=== PATIENT | female | born 1965 | race African-American/Black ===

== ENCOUNTER 2022-06-12 00:30 | Inpatient (IN) | payer MEDICAID, OTHER ==
[~2022-06-12] VITALS: Ht 154.9 cm; Wt 61.9 kg
[2022-06-12] MEDS ORDERED: ASPIRIN 81MG TABLET PO ONE (01:00)
[2022-06-12] MEDS ORDERED: ASPIRIN 81MG TABLET PO NR (03:30)
[2022-06-12 03:32] LABS: BASOPHILS % 1.4 % (0.0-2.0); EOSINOPHILS % 3.5 % (0.0-5.0); HEMATOCRIT. 40.6 % (36.0-48.0); HEMOGLOBIN. 13.6 g/dL (12.0-16.0); MEAN CORPUSCULAR HEMOGLOBIN 30.7 pg (28.0-32.0); MEAN CORPUSCULAR VOLUME 91.7 fL (81.0-99.0); MEAN PLATELET VOLUME 6.3 fl (7.4-10.4); MONOCYTES % 9.5 % (2.0-8.0); NEUTROPHILS % 55.6 % (40.0-76.0); PLATELET 281 x1000/uL (130-400); RED BLOOD CELL COUNT 4.43 mill/uL (4.2-5.4); RED CELL DISTRIBUTION WIDTH 15.5 % (11.6-14.6)
[2022-06-12 03:44] LABS: D-DIMER 4.95 mg/L FEU (<0.50); INR 1.1; PARTIAL THROMBOPLASTIN TIME 28.1 sec (23.4-31.0); PROTHROMBIN TIME 11.5 sec (9.6-11.0)
[2022-06-12 04:00] LABS: CHLORIDE 107 mEq/L (98-107)
[2022-06-12] MEDS ORDERED: ENOXAPARIN 80MG/0.8ML SYR SUBCUT NR (05:00)
[2022-06-12] MEDS ORDERED: NALOXONE HCL 0.4MG/ML VIAL IV PRN ×2 (08:15→16:00)
[2022-06-12] MEDS: HYDROCODONE/ACETAMINOPHEN 10/325MG TABLET PO PRN ×2 (08:33→14:38)
[2022-06-12 10:00] VITALS: BP 157/93
[2022-06-12] MEDS ORDERED: HYDRALAZINE 20MG/ML VIAL IV NR (11:45)
[2022-06-12 12:00] VITALS: BP 188/96
[2022-06-12] MEDS ORDERED: ONDANSETRON HCL 4MG/2ML INJ IV PRN (15:45)
[2022-06-12] MEDS ORDERED: DOCUSATE SODIUM 100MG CAPSULE PO PRN (15:45)
[2022-06-12] MEDS ORDERED: ACETAMINOPHEN 325MG TABLET PO PRN (15:45)
[2022-06-12] MEDS ORDERED: MAGNESIUM/ALUMINUM HYDROXIDE/SIMETHICONE 30ML UDC PO PRN (15:45)
[2022-06-12] MEDS ORDERED: CLONIDINE 0.1MG TABLET PO PRN (15:45)
[2022-06-12 16:00] VITALS: BP 138/98
[2022-06-12] MEDS ORDERED: AZITHROMYCIN 500 MG in DEXT 5% WATER 250 ML IV SCH (17:00)
[2022-06-12] MEDS: CEFTRIAXONE 1,000 MG in DEXTROSE 5% WATER 50 ML IV SCH (17:22)
[2022-06-12] MEDS: AMLODIPINE 5MG TABLET PO SCH (17:22)
[2022-06-12] MEDS: ENOXAPARIN 80MG/0.8ML SYR SUBCUT SCH (17:22)
[2022-06-12] MEDS: PANTOPRAZOLE SODIUM 40 MG/VIAL IV SCH (17:22)
[2022-06-12 19:16] LABS: CLARITY URINE CLEAR (CLEAR); COLOR URINE YELLOW (YELLOW); KETONES URINE NEGATIVE (NEGATIVE); LEUKOCYTE ESTERASE URINE 3+ (NEGATIVE); NITRITE URINE NEGATIVE (NEGATIVE); OCCULT BLOOD URINE NEGATIVE (NEGATIVE); PH URINE 6.5 (4.5-8.0); PROTEIN URINE NEGATIVE (NEGATIVE); SPECIFIC GRAVITY URINE 1.009 (1.005-1.030); UROBILINOGEN URINE 0.2 E.U./dL (0.2-1.0)
[2022-06-12 19:32] LABS: *AMPHETAMINES SCREEN URINE NEGATIVE (NEGATIVE); *BARBITURATES SCREEN URINE NEGATIVE (NEGATIVE); *BENZODIAZEPINES SCREEN URINE NEGATIVE (NEGATIVE); *COCAINE SCREEN URINE PRESUMTIVE POSITIVE (NEGATIVE); CANNABINOID URINE SCREEN PRESUMTIVE POSITIVE (NEGATIVE); METHADONE URINE SCREEN NEGATIVE (NEGATIVE); OPIATES URINE SCREEN PRESUMTIVE POSITIVE (NEGATIVE); PHENCYCLIDINE URINE SCREEN NEGATIVE (NEGATIVE)
[2022-06-12 20:00] VITALS: BP 145/97
[2022-06-13] VITALS: BP 147/97
[2022-06-13] MEDS: HYDROCODONE/ACETAMINOPHEN 10/325MG TABLET PO PRN ×3 (02:04→21:39)
[2022-06-13 04:00] VITALS: BP 102/75
[2022-06-13] MEDS: ENOXAPARIN 80MG/0.8ML SYR SUBCUT SCH (05:35)
[2022-06-13 08:00] VITALS: BP 131/86
[2022-06-13] MEDS: PANTOPRAZOLE SODIUM 40 MG/VIAL IV SCH (08:11)
[2022-06-13] MEDS: AMLODIPINE 5MG TABLET PO SCH (08:11)
[2022-06-13] MEDS ORDERED: IOHEXOL-350 100 ML BOTTLE ONE (09:30)
[2022-06-13 11:48] LABS: BASOPHILS % 1.4 % (0.0-2.0); EOSINOPHILS % 1.1 % (0.0-5.0); HEMATOCRIT. 45.4 % (36.0-48.0); HEMOGLOBIN. 15.7 g/dL (12.0-16.0); LYMPHOCYTES % 24.8 % (20.0-50.0); MEAN CORPUSCULAR HEMOGLOBIN 31.1 pg (28.0-32.0); MEAN CORPUSCULAR VOLUME 90.2 fL (81.0-99.0); MEAN PLATELET VOLUME 6.5 fl (7.4-10.4); MONOCYTES % 9.7 % (2.0-8.0); PLATELET 316 x1000/uL (130-400); RED BLOOD CELL COUNT 5.04 mill/uL (4.2-5.4); RED CELL DISTRIBUTION WIDTH 14.8 % (11.6-14.6)
[2022-06-13 12:00] VITALS: BP 121/89
[2022-06-13 12:05] LABS: CHLORIDE 104 mEq/L (98-107)
[2022-06-13 12:14] LABS: BG BASE EXCESS -0.4 mmol/L (-2.0-2.0); BG CARBOXYHEMOGLOBIN 0.5 % (0.5-1.5); BG DEOXYHEMOGLOBIN 5.1 % (0.0-5.0); BG FRACTION INSPIRED OXYGEN 21; BG HCO3 ACT 21.9 mmol/L (22.0-26.0); BG METHEMOGLOBIN 0.1 % (0.0-1.5); BG OXYGEN SATURATION 94.9 % (92.0-98.5); BG OXYHEMOGLOBIN 94.3 % (94.0-97.0); BG PCO2 30.2 mmHg (35.0-45.0); BG PH 7.478 (7.350-7.450); BG PO2 71.7 mmHg (75.0-100.0); BG SAMPLE SITE RIGHT RADIAL; BG TOTAL HEMOGLOBIN 16.3 g/dL (12.0-18.0); BG VENT MODE ROOM AIR
[2022-06-13 12:24] LABS: HDL CHOLESTEROL 36 mg/dL (40-59); LDL CHOLESTEROL 130 mg/dL (5-100); PHOSPHORUS 3.7 mg/dL (2.5-4.9)
[2022-06-13 16:00] VITALS: BP 111/77
[2022-06-13] MEDS: CEFTRIAXONE 1,000 MG in DEXTROSE 5% WATER 50 ML IV SCH (16:47)
[2022-06-13 20:00] VITALS: BP 104/64
[2022-06-13] MEDS: ENOXAPARIN 60MG/0.6ML SYR SUBCUT SCH (20:25)
[2022-06-14] VITALS: BP 93/59
[2022-06-14] MEDS: HYDROCODONE/ACETAMINOPHEN 10/325MG TABLET PO PRN ×2 (01:40→08:56)
[2022-06-14 04:00] VITALS: BP 98/65
[2022-06-14 08:00] VITALS: BP 131/94
[2022-06-14 08:04] LABS: BASOPHILS % 1.5 % (0.0-2.0); EOSINOPHILS % 2.8 % (0.0-5.0); HEMATOCRIT. 45.1 % (36.0-48.0); HEMOGLOBIN. 15.2 g/dL (12.0-16.0); LYMPHOCYTES % 29.9 % (20.0-50.0); MEAN CORPUSCULAR HEMOGLOBIN 30.6 pg (28.0-32.0); MEAN CORPUSCULAR VOLUME 90.6 fL (81.0-99.0); MEAN PLATELET VOLUME 6.2 fl (7.4-10.4); MONOCYTES % 12.1 % (2.0-8.0); NEUTROPHILS % 53.7 % (40.0-76.0); PLATELET 334 x1000/uL (130-400); RED BLOOD CELL COUNT 4.98 mill/uL (4.2-5.4); RED CELL DISTRIBUTION WIDTH 15.2 % (11.6-14.6)
[2022-06-14 08:25] LABS: CHLORIDE 103 mEq/L (98-107)
[2022-06-14] MEDS: AMLODIPINE 5MG TABLET PO SCH (08:56)
[2022-06-14] MEDS: ENOXAPARIN 60MG/0.6ML SYR SUBCUT SCH (08:57)
[2022-06-14] MEDS ORDERED: FAMOTIDINE 20MG/2ML VIAL IV SCH (09:00)
[2022-06-14] MEDS ORDERED: AZITHROMYCIN 500 MG TABLET PO SCH (09:00)
[2022-06-14 12:00] VITALS: BP 97/69
[2022-06-14] MEDS ORDERED: APIX5TAB MT (12:46)
[2022-06-14] MEDS ORDERED: AMLO5TAB88 PO (12:46)
[2022-06-14 13:15] VITALS: BP 97/69
== END 2022-06-14 15:30 | disposition home or self-care (01) | DRG 816 ==
LOC: ER 00:46 → 8WST 04:48 → ENRESERV 08:36
PROVIDERS: ADMIT Internal Medicine; ATTEND Internal Medicine
DX: T40.5X1A Poisoning by cocaine, accidental (unintentional), initial encounter (principal); I21.4 Non-ST elevation (NSTEMI) myocardial infarction; E44.1 Mild protein-calorie malnutrition; I95.9 Hypotension, unspecified; K76.0 Fatty (change of) liver, not elsewhere classified; T40.711A Poisoning by cannabis, accidental (unintentional), initial encounter; I82.431 Acute embolism and thrombosis of right popliteal vein; I10 Essential (primary) hypertension; R74.01 Elevation of levels of liver transaminase levels; F14.10 Cocaine abuse, uncomplicated; F12.10 Cannabis abuse, uncomplicated; F17.210 Nicotine dependence, cigarettes, uncomplicated; Z91.19 Patient's noncompliance with other medical treatment and regimen; Z68.25 Body mass index [BMI] 25.0-25.9, adult; Z20.822 Contact with and (suspected) exposure to COVID-19
CPT/HCPCS: 36415; 36600; 71045; 71275; 76700; 80048; 80053; 80061; 80076; 80305; 81003; 82375; 82805; 83735; 83880; 84100; 84145; 84439; 84443; 84484; 85025; 85379; 87426; 93005; 93306; 93970; 99285; C9113; J0360; J0456; J0696; J1650; J3490; J7060; Q9967

== ENCOUNTER 2022-07-13 02:46 | Emergency (ER) | payer MEDICAID, OTHER ==
[~2022-07-13] VITALS: Ht 160 cm; Wt 59.0 kg
[~2022-07-13 02:46] MED LIST: AMLO5TAB88 PO; APIX5TAB MT
[2022-07-13 03:17] VITALS: BP 96/60
[2022-07-13] MEDS ORDERED: LORAZEPAM 1MG TABLET PO ONE (03:45)
== END 2022-07-13 05:08 | disposition home or self-care (01) ==
LOC: ER 02:46
DX: R00.2 Palpitations (principal); F12.10 Cannabis abuse, uncomplicated; F14.10 Cocaine abuse, uncomplicated
CPT/HCPCS: 99283

== ENCOUNTER 2023-05-19 14:24 | Emergency (ER) | payer MEDICAID, OTHER ==
[~2023-05-19] VITALS: Ht 165.1 cm; Wt 73.0 kg
[2023-05-19 14:27] VITALS: O2SAT 98
[2023-05-19] MEDS ORDERED: ASPIRIN 81MG TABLET PO ONE (14:45)
[2023-05-19 15:24] LABS: CHLORIDE 107 mEq/L (98-107)
[2023-05-19 15:31] LABS: BASOPHILS % 1.2 % (0.0-2.0); EOSINOPHILS % 1.5 % (0.0-5.0); HEMATOCRIT. 41.3 % (36.0-48.0); HEMOGLOBIN. 14.1 g/dL (12.0-16.0); LYMPHOCYTES % 43.2 % (20.0-50.0); MEAN CORPUSCULAR HEMOGLOBIN 31.2 pg (28.0-32.0); MEAN CORPUSCULAR VOLUME 91.6 fL (81.0-99.0); MEAN PLATELET VOLUME 6.3 fl (7.4-10.4); MONOCYTES % 7.3 % (2.0-8.0); NEUTROPHILS % 46.8 % (40.0-76.0); PLATELET 324 x1000/uL (130-400); RED BLOOD CELL COUNT 4.51 mill/uL (4.2-5.4)
[2023-05-19 15:40] LABS: D-DIMER 0.2 mg/L FEU (<0.50); PARTIAL THROMBOPLASTIN TIME 27.4 sec (23.4-31.0); PROTHROMBIN TIME 10.5 sec (9.6-11.0)
[2023-05-19 15:41] LABS: HCG SCREEN NEGATIVE
[2023-05-19 19:32] VITALS: BP 122/81; PULSE 77; RESP 15; TEMP 97.9
[2023-05-19] MEDS ORDERED: IOHEXOL-350 100 ML BOTTLE ONE (21:31)
== END 2023-05-19 20:01 | disposition home or self-care (01) ==
LOC: ER 14:33
DX: R07.89 Other chest pain (principal); R06.02 Shortness of breath; I10 Essential (primary) hypertension
CPT/HCPCS: 80053; 84703; 83880; 85025; 85379; 85610; 85730; 84484; 36415; 71045; 71275; 93005; 99285; Q9967; Z7610 ×3

== ENCOUNTER 2024-07-27 06:07 | Emergency (ER) | payer MEDICAID ==
[~2024-07-27] VITALS: Ht 154.9 cm; Wt 69.0 kg
[~2024-07-27 06:07] MED LIST changes: +ATOR20TA MT; +DOXY100C5 MT; +METR375C2 MT
[2024-07-27 06:09] VITALS: BP 114/73; PULSE 67; RESP 16; TEMP 97.4; O2SAT 98
[2024-07-27] MEDS ORDERED: KETOROLAC 15MG/ML VIAL IM NR (08:30)
== END 2024-07-27 08:40 | disposition left against medical advice (07) ==
LOC: ER 06:14
DX: R10.9 Unspecified abdominal pain (principal); I10 Essential (primary) hypertension; I82.409 Acute embolism and thrombosis of unspecified deep veins of unspecified lower extremity; Z79.899 Other long term (current) drug therapy
CPT/HCPCS: 99283

== ENCOUNTER 2024-11-22 03:02 | Emergency (ER) | payer MEDICAID ==
[~2024-11-22] VITALS: Ht 170.2 cm; Wt 65.0 kg
[2024-11-22 03:25] VITALS: O2SAT 98
[2024-11-22 04:04] LABS: HEMATOCRIT. 46.9 % (36.0-48.0); HEMOGLOBIN. 15.9 g/dL (12.0-16.0); MEAN CORPUSCULAR HEMOGLOBIN 31.3 pg (28.0-32.0); MEAN CORPUSCULAR HGB CONC 33.9 g/dL (31.0-37.0); MEAN CORPUSCULAR VOLUME 92.2 fL (81.0-99.0); MEAN PLATELET VOLUME 5.9 fl (7.4-10.4); PLATELET 445 x1000/uL (130-400); RED BLOOD CELL COUNT 5.08 mill/uL (4.2-5.4); RED CELL DISTRIBUTION WIDTH 15.5 % (11.6-14.6); WHITE BLOOD COUNT 8.8 x1000/uL (4.5-11.0)
[2024-11-22 04:27] LABS: CARBON DIOXIDE 19 mEq/L (21-32); CHLORIDE 103 mEq/L (98-107); POTASSIUM 3.6 mEq/L (3.5-5.1); SODIUM 134 mEq/L (136-145)
[2024-11-22 04:28] LABS: CALCIUM 9.6 mg/dL (8.7-10.4)
[2024-11-22 04:33] LABS: ETHANOL BLOOD 39 mg/dL (<10); GLUCOSE 94 mg/dL (70-105); UREA NITROGEN BLOOD 9 mg/dL (9-23)
[2024-11-22 04:37] LABS: D-DIMER 0.26 mg/L FEU (<0.50); PARTIAL THROMBOPLASTIN TIME 30.5 sec (23.4-31.0); PROTHROMBIN TIME 11.1 sec (9.6-11.0)
[2024-11-22 04:39] LABS: TROPONIN I HIGH SENSITIVITY < 4 ng/L (3.0-34)
[2024-11-22 04:43] LABS: DIFFERENTIAL COMMENT 1
[2024-11-22] MEDS ORDERED: ACETAMINOPHEN 1000MG/100ML 100 ML IV ONE (05:30)
[2024-11-22] MEDS ORDERED: ALBUTEROL (0.083%) 2.5MG/3ML NEB HHN ONE (05:30)
[2024-11-22 08:27] VITALS: BP 152/82; PULSE 96; RESP 18; TEMP 37.16964; O2SAT 100
[2024-11-22] MEDS ORDERED: MORPHINE SULFATE 2 MG/ML INJ (NOT FOR IM USE) IV PRN (08:30)
[2024-11-22] MEDS ORDERED: ONDANSETRON HCL 4MG/2ML INJ IV PRN (08:30)
[2024-11-22] MEDS ORDERED: CLONIDINE 0.1MG TABLET PO PRN (08:30)
[2024-11-22] MEDS ORDERED: LORAZEPAM 2MG/ML INJ IV PRN (08:30)
[2024-11-22] MEDS ORDERED: HYDROCODONE/ACETAMINOPHEN 5/325MG TABLET PO PRN (08:30)
[2024-11-22] MEDS ORDERED: ACETAMINOPHEN 325MG TABLET PO PRN (08:30)
[2024-11-22] MEDS ORDERED: IPRATROPIUM/ALBUTEROL 0.5-3(2.5)MG/3ML NEB NEB PRN (08:30)
[2024-11-22] MEDS ORDERED: NALOXONE HCL 0.4MG/ML VIAL IV PRN (08:45)
[2024-11-22] MEDS ORDERED: AMLODIPINE 5MG TABLET PO SCH (09:00)
[2024-11-22] MEDS ORDERED: ATORVASTATIN CALCIUM 20MG TABLET PO SCH (09:00)
[2024-11-22] MEDS ORDERED: APIXABAN 5 MG TABLET PO SCH (09:00)
[2024-11-22] MEDS ORDERED: PANTOPRAZOLE SODIUM 40 MG/VIAL IV SCH (09:00)
[2024-11-22] MEDS ORDERED: MVI, ADULT NO.1 10 ML, FOLIC ACID 1 MG, THIAMINE HCL 100 MG in SODIUM CHLORIDE 0.9% 1,0... IV SCH (09:30)
[2024-11-22 11:48] LABS: PLATELET ESTIMATE SLIGHTLY INCREASED
[2024-11-22] MEDS ORDERED: ZOLPIDEM TARTRATE 5MG TABLET PO PRN (21:00)
== END 2024-11-22 08:52 | disposition short-term general hospital (02) ==
LOC: ER 03:02 → EDBEDREQ 06:57 → EDBEDREQTM 06:57 → CANBEDREQ 08:02 → ER 08:52
DX: R07.89 Other chest pain (principal); R05.9 Cough, unspecified; I10 Essential (primary) hypertension; F10.90 Alcohol use, unspecified, uncomplicated; F13.90 Sedative, hypnotic, or anxiolytic use, unspecified, uncomplicated; Z86.718 Personal history of other venous thrombosis and embolism; Z20.822 Contact with and (suspected) exposure to COVID-19; Y90.9 Presence of alcohol in blood, level not specified; Z79.01 Long term (current) use of anticoagulants; Z79.899 Other long term (current) drug therapy
CPT/HCPCS: 36415; 71045; 80048; 80320; 83880; 84484; 85025; 85379; 87426; 87804; 93005; 99285; J3411; J3490; J7030; G0480; J0131

== ENCOUNTER 2025-05-02 05:26 | Emergency (ER) | payer OTHER ==
[~2025-05-02] VITALS: Ht 165.1 cm; Wt 69.0 kg
[~2025-05-02 05:26] MED LIST changes: -ATOR20TA MT; +ATOR20TA65 PO; -DOXY100C5 MT; -METR375C2 MT; +NA P133E RC; +POLY510P31 PO; +TRAZ-251 PO
[2025-05-02 05:33] VITALS: O2SAT 100
[2025-05-02 06:29] LABS: HEMATOCRIT. 40.8 % (36.0-48.0); LYMPHOCYTES % 51.1 % (20.0-50.0); MEAN CORPUSCULAR HEMOGLOBIN 30.7 pg (28.0-32.0); MEAN CORPUSCULAR HGB CONC 34.3 g/dL (31.0-37.0); MEAN CORPUSCULAR VOLUME 89.4 fL (81.0-99.0); MONOCYTES % 6.3 % (2.0-8.0); NEUTROPHILS % 40.6 % (40.0-76.0); PLATELET 282 x1000/uL (130-400); RED BLOOD CELL COUNT 4.56 mill/uL (4.2-5.4); RED CELL DISTRIBUTION WIDTH 14.2 % (11.6-14.6); WHITE BLOOD COUNT 5.1 x1000/uL (4.5-11.0)
[2025-05-02 06:40] LABS: CHLORIDE 108 mEq/L (98-107); POTASSIUM 3.9 mEq/L (3.5-5.1); SODIUM 138 mEq/L (136-145)
[2025-05-02 06:41] LABS: CARBON DIOXIDE 21 mEq/L (21-32)
[2025-05-02 06:42] LABS: CALCIUM 9.5 mg/dL (8.7-10.4)
[2025-05-02 06:46] LABS: CREATININE 0.9 mg/dL (0.6-1.0); GLUCOSE 76 mg/dL (70-105); UREA NITROGEN BLOOD 13 mg/dL (9-23)
[2025-05-02 07:05] LABS: TROPONIN I HIGH SENSITIVITY < 4 ng/L (3.0-34)
[2025-05-02 07:49] LABS: ALANINE AMINOTRANSFERASE 20 IU/L (10-49); ALBUMIN 4.3 g/dL (3.2-4.8); ASPARTATE AMINOTRANSFERASE 23 IU/L (<34); BILIRUBIN DIRECT 0.1 mg/dL (<=3.0); BILIRUBIN TOTAL 0.4 mg/dL (0.1-1.0); PROTEIN TOTAL 7.2 g/dL (6.0-8.3)
[2025-05-02] MEDS: MAGNESIUM/ALUMINUM HYDROXIDE/SIMETHICONE 30ML UDC PO STA (07:58)
[2025-05-02] MEDS: ONDANSETRON 4MG ODT PO STA (07:58)
[2025-05-02] MEDS: FAMOTIDINE 20MG TABLET PO ONE (07:59)
[2025-05-02 08:11] LABS: TROPONIN I HIGH SENSITIVITY < 4 ng/L (3.0-34)
[2025-05-02] MEDS: DICYCLOMINE 10 MG/5 ML ORAL SYR PO STA (08:16)
[2025-05-02 11:30] VITALS: BP 108/68; PULSE 48; RESP 17; TEMP 36.6; O2SAT 100
== END 2025-05-02 11:07 | disposition short-term general hospital (02) ==
LOC: ER 05:26 → EDBEDREQ 09:54 → ER 11:07
DX: R07.89 Other chest pain (principal); G89.29 Other chronic pain; R10.9 Unspecified abdominal pain; E78.00 Pure hypercholesterolemia, unspecified; F17.200 Nicotine dependence, unspecified, uncomplicated; I10 Essential (primary) hypertension; F10.90 Alcohol use, unspecified, uncomplicated; F12.90 Cannabis use, unspecified, uncomplicated; Z79.01 Long term (current) use of anticoagulants; Z79.899 Other long term (current) drug therapy; Z86.718 Personal history of other venous thrombosis and embolism; Y90.9 Presence of alcohol in blood, level not specified
CPT/HCPCS: 80076; 80048; 83880; 83690; 85025; 85610; 84484; 36415; 71045; 74176; 93005; 99285; Q0162; Z7610 ×3; A4606